=== PATIENT | female | born 1970 | race Caucasian/White ===

== ENCOUNTER → 2018-09-21 | Outpatient (CLI) | payer OTHER ==
--- NOTE | 2018-09-22 08:59 | RADIOLOGY IMAGING REPORT ---
FACILITY: [facility] [place] PATIENT NAME: SONIA PARIS : [id number] MR: [id number] V: [id number] EXAM DATE: [id number] ORDERING PHYSICIAN: JAN MCELROY TECHNOLOGIST: Judy Dee PROCEDURE:LEFT DIGITAL MAMMOGRAM DIAGNOSTIC WITH CAD ASSISTED INTERPRETATION & 3D TOMOSYNTHESIS REASON FOR STUDY: 6 month follow up FAMILY HISTORY OF BREAST CANCER: Mother at the age of 47 BREAST PROCEDURES/TREATMENTS: None COMPARISON STUDIES: Prior outside mammograms dated 02/23/18 & 02/07/18 MAMMOGRAM VIEWS OBTAINED: 2D & 3D full field Left CC & MLO projections in addition to 2D & 3D spot compression view in the Left CC projection. BREAST DENSITY: The breasts are almost entirely fatty MAMMOGRAM FINDINGS: The asymmetry previously noted in the upper outer quadrant of the Left breast appears mostly compressible & appears much less prominent when compared to the prior study. DIAGNOSTIC CATEGORY 3--PROBABLY BENIGN FINDING. RECOMMENDATIONS: SIX MONTH FOLLOW-UP DIAGNOSTIC MAMMOGRAM: BILATERAL BREASTS. ASSESSMENT: BIRADS 3: Probably benign finding. A 6 month follow up bilateral mammogram is recommended at which time the patient will be due for her annual mammogram. Dictated by: Kelli Appiah M.D. on 09/21/2018 at 13:33 Transcribed by: LILLY on 09/21/2018 at 14:03 Approved by: Kelli Appiah M.D. on 09/22/2018 at 8:58 [facility]
== END ==
LOC: MAMO 11:20
PROVIDERS: ATTEND Family Medicine
DX: R92.2 Inconclusive mammogram (principal)
CPT/HCPCS: 77061; 77065